=== PATIENT | female | born 1985 | race Caucasian/White ===

== ENCOUNTER 2018-10-01 00:21 | Emergency (ER) | payer MEDICAID ==
[~2018-10-01] VITALS: Ht 167.6 cm; Wt 98.4 kg
[~2018-10-01 00:21] MED LIST: ACET500T71 PO; HYDR-3237 PO; NAPR-685 PO
--- NOTE | 2018-10-01 01:00 | NUR ---
lunch rn: report of pt from anselmo Jarrell. assuming care of pt at this time.
[2018-10-01] MEDS ORDERED: ALBUTEROL/IPRATROPIUM 2.5MG/0.5MG, 3 ML NPPB ONE (01:30)
[2018-10-01] MEDS ORDERED: ALBUTEROL/IPRATROPIUM 2.5MG/0.5MG, 3 ML ONE ×2 (01:36→01:43)
[2018-10-01 01:45] VITALS: BP 127/77
--- NOTE | 2018-10-01 01:46 | NUR ---
LUNCH RN: RT AT BS. PT VSS AND UPDATED IN EMR.
== END 2018-10-01 02:14 | disposition home or self-care (01) ==
LOC: ED 02:07
DX: J06.9 Acute upper respiratory infection, unspecified (principal); H66.91 Otitis media, unspecified, right ear
CPT/HCPCS: 71046; 93005; 94640; 99283; J7620